=== PATIENT | female | born 1980 | race Caucasian/White ===

== ENCOUNTER 2016-06-20 12:41 | Emergency (ER) | payer BC, OTHER ==
[~2016-06-20] VITALS: Ht 157.5 cm; Wt 81.2 kg
[~2016-06-20 12:41] MED LIST: BCPILLS PO; CITA20TA9 PO; HYDR-5688 PO; IMT100 PO; MAGN250T3 PO
[2016-06-20 13:05] VITALS: TEMP 36.8; Ht 157.5 cm; Wt 81.2 kg
[2016-06-20] MEDS ORDERED: SODIUM CHLORIDE 0.9% 1000ML 1,000 ML IV STA (14:59)
[2016-06-20] MEDS ORDERED: DiphenhydrAMINE HCL 50 MG/ML VIAL IV STA (14:59)
[2016-06-20] MEDS ORDERED: PROCHLORPERAZINE 5 MG/ML 2 ML VIAL IV STA (14:59)
[2016-06-20] MEDS ORDERED: KETOROLAC TROMETHAMINE 30 MG/ML VIAL IV STA (14:59)
[2016-06-20] MEDS ORDERED: TOPI50TA16 PO (15:00)
[2016-06-20] MEDS ORDERED: FEXO1TAB58 PO (15:00)
[2016-06-20] MEDS ORDERED: LORAZEPAM 2 MG/ML 1 ML VIAL IV STA (16:12)
[2016-06-20 16:57] VITALS: BP 121/76; PULSE 86; O2SAT 100
--- NOTE | 2016-06-20 18:13 | EMERGENCY ROOM VISIT NOTE ---
History Report prepared by Lena: Ada Pierre Under the Supervision of: Dr. Isaias Linton M.D. First contact with patient: 14:50 Chief Complaint: HEADACHE Stated Complaint: SEVERE MIGRAINE - 7+ DAYS History of Present Illness The patient is a 35 year old female who presents to the Emergency Room with complaints of a persistent headache for the past seven days. She currently rates her discomfort as a 6/10 in severity. The patient stats that her headache is localized behind her right eye and describes her discomfort as a throbbing pain. She states that she has a history of migraines since she was 11 years old. The patient states that she has taken Imitrex and Topamax for her symptoms without relief. She states that this feels like a typical migraine , but just states that nothing has alleviated her headache. The patient states that light worsens her pain. She additionally associates nausea with her symptoms. The patient denies any fever, vomiting, abdominal pain, numbness or weakness. She denies any chance of . The patient denies any recent fall, trauma, or car accident. She reports normal eating and drinking. The patient notes a history of trigeminal neuralgia. Source of History: patient Onset: seven days Position: head (behind right eye) Symptom Intensity: 6/10 Quality: other (throbbing) Timing: other (persistent) Modifying Factors (Worsening): other (light) Associated Symptoms: + nausea, No abdominal pain, No fevers, No numbness, No vomiting, No weakness Review of Systems See HPI for pertinent positives & negatives. A total of 10 systems reviewed and were otherwise negative. Past Medical & Surgical Medical Problems: (1) section (2) Intrauterine (3) Kidney stones (4) Obesity (5) Polycystic ovaries Surgical Problems: (1) History of section (2) S/P laparoscopic surgery Family History FHx: cancer FHx: diabetes FHx: heart disease FHx: hypertension FHx: seizures Social History Smoking Status: Never Smoker Alcohol Use: none Drug Use: none Marital Status: Housing Status: lives with family Occupation Status: unemployed Current/Historical Medications Scheduled Control Pills ( Control Pills), 1 TAB PO DAILY Citalopram Hydrobromide (Celexa), 30 MG PO QPM Fexofenadine-Pseudoephedrine (Shayna-D 24 Hour Allergy), 1 TAB PO DAILY Magnesium (Magnesium 250 mg), 500 MG PO DAILY Topiramate (Topamax), 50 MG PO BID Scheduled PRN Sumatriptan Succinate (Imitrex), 100 MG PO DAILY PRN for Headache Allergies Coded Allergies: Ropinirole (Verified Allergy, Mild, 04/19/16) Physical Exam Vital Signs Date Time Temp Pulse Resp B/P Pulse Ox O2 Delivery O2 Flow Rate FiO2 06/20/16 16:57 86 18 121/76 100 Room Air 06/20/16 14:54 88 16 157/104 99 06/20/16 13:05 36.8 67 16 150/98 99 Room Air Physical Exam Constitutional: Vital signs reviewed. Eyes: Pupils are equal round reactive to light. Conjunctiva are noninjected. ENT: Pharynx is clear without erythema or exudate. Mucous membranes are moist. Neck supple without meningeal signs. Respiratory: Clear to auscultation bilaterally. Breath sounds are equal bilaterally. Cardiovascular: Regular rate and rhythm. No rubs or gallops. GI: Soft, nondistended and nontender. Bowel sounds are present. Musculoskeletal: No peripheral edema. Integumentary: No cyanosis. Neurological: The patient is awake and alert. Cranial nerves II-XII are intact. Motor is 5 out of 5 all extremities. Sensation is intact to light touch all extremities. Normal speech. No pronator drift. Psychiatric: Normal affect. Medical Decision & Procedures Medications Administered Medications (Trade) Dose Ordered Sig/Rober Route Start Time Stop Time Status Last Admin Dose Admin Prochlorperazine Edisylate (Compazine Inj) 10 mg NOW STAT IV 06/20/16 14:59 06/20/16 15:00 DC 06/20/16 15:38 10 MG Diphenhydramine HCl (Benadryl Inj) 50 mg NOW STAT IV 06/20/16 14:59 06/20/16 15:00 DC 06/20/16 15:42 50 MG Ketorolac Tromethamine 10 mg 10 mg NOW STAT IV 06/20/16 14:59 06/20/16 15:00 DC 06/20/16 15:41 10 MG Sodium Chloride (Nss 1000ml) 1,000 ml @ 999 mls/hr Q1H1M STAT IV 06/20/16 14:59 06/20/16 15:59 DC 06/20/16 15:42 999 MLS/HR Lorazepam (Ativan Inj) 1 mg NOW STAT IV 06/20/16 16:12 06/20/16 16:13 DC 06/20/16 16:20 1 MG ED Course 1454: The patient was evaluated in room A11B. A complete history and physical exam was performed. 1459: Ordered Sodium Chloride 1000 ml @ 999 mls/hr IV, Toradol Inj 10 mg IV, Benadryl Inj 50 mg IV, Compazine Inj 10 mg IV. 1537: I reevaluated the patient and she is just getting her medications now. 1612: I reevaluated the patient and her headache is better, but is feeling very restless and itchy from the inside. I told her that is probably from the Compazine. She states that she also gets that from Benadryl. Ordered Ativan Inj 1 mg IV. 1650: I reevaluated the patient and she is feeling much better. I discussed the treatment plan with her and she verbalized complete understanding and agreement. She is ready to go home. Medical Decision This is a 35-year-old female who presents with a migraine headache. I did perform a limited focused review of portions of the patient's old chart on the electronic medical record. The patient has had no recent pertinent visits to this hospital. I did evaluate the patient as noted above. The patient is presenting with a headache consistent with her prior migraine headaches. She denies any fever or injury. She is neurologically intact and afebrile here. IV access was established. I did treat her with IV normal saline, Toradol, Compazine and Benadryl. I did reevaluate the patient. She is feeling much better in regards to her headache but she states that she feels extremely restless. This is likely from the Compazine. She also states that Benadryl at home gives her similar symptoms. I therefore treated her with Ativan IV. On reassessment she states that she is feeling much better and ready for discharge home. She was discharged and advised follow up with her doctor. Impression Primary Impression: Acute headache Scribe Attestation The scribe's documentation has been prepared under my direct and personally reviewed by me in its entirety. I confirm that the note above accurately reflects all work, treatment, procedures, and medical decision making performed by me. Departure Information Dispostion Home / Self-Care Forms HOME CARE DOCUMENTATION FORM, IMPORTANT VISIT INFORMATION, Work Instructions Patient Instructions ED Headache Migraine, My [facility] Additional Instructions You have been examined and treated today on an emergency basis only. This is not a substitute for, or an effort to provide, complete comprehensive medical care. It is impossible to recognize and treat all injuries or illnesses in a single emergency department visit. It is therefore important that you follow up closely with your physician. Call as soon as possible for an appointment. Return for worsening symptoms or if you develop fever, numbness or weakness on one side of your body, difficulties with your speech or walking, or any other concerning symptoms.
== END 2016-06-20 16:58 | disposition home or self-care (01) ==
LOC: C.EDB 12:42 → C.EDA 16:58
DX: R51 Headache (principal); E28.2 Polycystic ovarian syndrome; Z87.442 Personal history of urinary calculi; Z79.899 Other long term (current) drug therapy; Z88.8 Allergy status to other drugs, medicaments and biological substances; Z80.9 Family history of malignant neoplasm, unspecified; Z83.3 Family history of diabetes mellitus; Z82.49 Family history of ischemic heart disease and other diseases of the circulatory system; Z82.0 Family history of epilepsy and other diseases of the nervous system

== ENCOUNTER 2016-10-06 18:13 | Emergency (ER) | payer OTHER ==
[~2016-10-06] VITALS: Ht 157.5 cm; Wt 83.0 kg
[~2016-10-06 18:13] MED LIST changes: +FEXO1TAB58 PO; -HYDR-5688 PO; +TOPI50TA16 PO
[2016-10-06 18:21] VITALS: TEMP 36.8; O2SAT 98; Ht 157.5 cm; Wt 83.0 kg
[2016-10-06 19:38] LABS: BASO % 0.4 %; BASO ABS # 0.04 K/uL (0-0.2); COMPLETE YES; EOS % 2.1 %; HEMATOCRIT 39.1 % (37-47); IG% 0.2 %; LYMPH % 35.6 %; LYMPH ABS # 3.66 K/uL (1.2-3.4); MEAN CELL VOLUME 89.1 fL (80-100); MEAN CORPUSCULAR HEMOGLOBIN 30.5 pg (25-34); MEAN CORPUSCULAR HGB CONC 34.3 g/dl (32-36); MEAN PLATELET VOLUME 9.2 fL (7.4-10.4); MONO % 6.7 %; PLATELET COUNT 417 K/uL (130-400); RED BLOOD COUNT 4.39 M/uL (4.2-5.4); WHITE BLOOD COUNT 10.27 K/uL (4.8-10.8)
[2016-10-06] MEDS ORDERED: GABA-113 PO (19:42)
[2016-10-06] MEDS ORDERED: ZOLP5TAB PO (19:42)
[2016-10-06] MEDS ORDERED: ABL15 PO (19:42)
[2016-10-06] MEDS ORDERED: CYM/30 PO (19:42)
[2016-10-06] MEDS ORDERED: PROP10TA7 PO (19:42)
[2016-10-06] MEDS ORDERED: LEVOTAB6 PO (19:42)
[2016-10-06] MEDS ORDERED: [UNRECOGNIZED DRUG - CODE] PO (19:42)
[2016-10-06] MEDS ORDERED: AMT24 PO (19:42)
[2016-10-06] MEDS ORDERED: CLON1TAB3 PO (19:42)
--- NOTE | 2016-10-06 19:45 | DIAGNOSTIC IMAGING REPORT ---
CHEST ONE VIEW PORTABLE CLINICAL HISTORY: Chest pain. COMPARISON STUDY: Chest radiograph April 19, 2016. FINDINGS: Lung volumes are normal. Lungs are clear. There is no pneumothorax or pleural effusion. Cardiac size is normal. Mediastinal contours are normal. There is no evidence of pulmonary edema. IMPRESSION: No acute cardiopulmonary findings. Electronically signed by: Yaniv Brandt M.D. 10/06/2016 7:44 PM Dictated Date/Time: 10/06/2016 7:42 PM
[2016-10-06 20:03] LABS: ALT/SGPT 31 U/L (12-78); AST/SGOT 18 U/L (15-37); BLOOD UREA NITROGEN 16 mg/dl (7-18); BUN/CREATININE RATIO 14.2 (10-20); CALCIUM 8.9 mg/dl (8.5-10.1); CARBON DIOXIDE 26 mmol/L (21-32); CHLORIDE 111 mmol/L (98-107); GLUCOSE 92 mg/dl (70-99); SODIUM 143 mmol/L (136-145)
[2016-10-06 20:08] LABS: ALB/GLOB RATIO 0.9 (0.9-2); ALKALINE PHOSPHATASE 62 U/L (45-117)
[2016-10-06] MEDS ORDERED: KETOROLAC TROMETHAMINE 30 MG/ML VIAL IV. STA (21:44)
[2016-10-06] MEDS ORDERED: KETOROLAC TROMETHAMINE 30 MG/ML VIAL ONE (21:44)
[2016-10-06] MEDS ORDERED: NURSING VERBAL MED ORDER ONE (21:45)
--- NOTE | 2016-10-06 21:45 | EMERGENCY ROOM VISIT NOTE ---
History Report prepared by Lena: Courtney Milligan Under the Supervision of: Dr. Yeimy Gomez D.O. First contact with patient: 18:22 Chief Complaint: CHEST PAIN Stated Complaint: CHEST PAIN, SOB History of Present Illness The patient is a 35 year old female who presents to the Emergency Room with complaints of improved centralized chest pain that started 1.5 hours ago, around 1730. She has never experienced this type of pain in the past. The patient states that she was packing boxes for her upcoming move and then stopped and made a salad. While she was making the salad, she developed the chest pain along with trouble getting enough air when taking a deep breath. The pain progressively got worse, so she contacted her neighbor, who is a former ED nurse. Her neighbor then came over to evaluate her and recommended coming into the ED for further evaluation. The pain radiated into the right side of her chest while she was talking to her neighbor. Currently, the pain has improved but it is still there. The patient is also experiencing pain in her right arm, but states that it is not radiating from her chest. She states that the arm pain is worse whenever she lifts it. The patient denies dizziness, recent colds , cough, nausea, and lower extremity edema. She is unsure of if she has experienced any changes in her bowel movements because she is on medication to keep her from being constipated so she normally experiences diarrhea and constipation intermittently. The patient states that she is moving to a new house is somewhat stressful but she states that she is excited to move. She adds that she has exercise-induced asthma, but states that she has not been exercising much recently. The patient believes that her biological father had a history of heart disease, but she only met him once so she is unsure of the details. The patient adds that she recently started a new medication for bipolar disorder 1 week ago. The patient denies any recent travel. She states that she has a history of GERD during , but this pain does not feel like that and she has not eaten anything to cause her to experience GERD. Source of History: patient Onset: 1.5 hours ago, around 1730 Position: chest (centralized) Quality: other (centralized chest pain) Timing: other (improved) Associated Symptoms: + SOB (trouble getting enough air when taking a deep breath), No cough, No nausea Note: right arm pain, no dizziness, no recent colds, no lower extremity edema Review of Systems See HPI for pertinent positives & negatives. A total of 10 systems reviewed and were otherwise negative. Past Medical & Surgical Medical Problems: (1) section (2) Intrauterine (3) Kidney stones (4) Obesity (5) Polycystic ovaries Surgical Problems: (1) History of section (2) S/P laparoscopic surgery Family History FHx: cancer FHx: diabetes FHx: heart disease FHx: hypertension FHx: seizures Social History Smoking Status: Never Smoker Alcohol Use: none Drug Use: none Marital Status: Housing Status: lives with family Occupation Status: unemployed Current/Historical Medications Scheduled Aripiprazole (Abilify), 15 MG PO QPM Clonazepam (Klonopin), 1 MG PO HS Duloxetine HCl (Cymbalta), 30 MG PO Q2D Fexofenadine-Pseudoephedrine (Shayna-D 24 Hour Allergy), 1 TAB PO DAILY Gabapentin (Neurontin), 300 MG PO HS Levonorgestrel-Ethinyl Estradi (Seasonique), 1 TAB PO DAILY Lubiprostone (Amitiza), 24 MCG PO QPM Magnesium (Magnesium 250 mg), 500 MG PO DAILY Topiramate (Topamax), 50 MG PO BID Scheduled PRN Caffeine (Stay Awake), 200 MG PO DAILY PRN for Headache Propranolol (Inderal), 10 MG PO DAILY PRN for PRN Sumatriptan Succinate (Imitrex), 100 MG PO DAILY PRN for Headache Zolpidem Tartrate (Ambien), 5 MG PO HS PRN for Sleep Allergies Coded Allergies: Ropinirole (Verified Allergy, Mild, 10/06/16) Physical Exam Vital Signs Date Time Temp Pulse Resp B/P Pulse Ox O2 Delivery O2 Flow Rate FiO2 10/06/16 22:35 67 18 144/81 99 Room Air 10/06/16 21:41 67 20 117/87 98 Room Air 10/06/16 20:06 66 17 144/96 100 Room Air 10/06/16 19:30 76 10/06/16 18:21 98 Room Air 10/06/16 18:21 98 Room Air 10/06/16 18:21 36.8 69 20 142/85 98 Room Air Physical Exam GENERAL: alert, well appearing, well nourished, no distress, non-toxic EYE EXAM: normal conjunctiva, PERRL and EOM's grossly intact OROPHARYNX: no exudate, no erythema, lips, buccal mucosa, and tongue normal and mucous membranes are moist NECK: supple, no nuchal rigidity, no adenopathy, non-tender CHEST: Reproducible chest tenderness on right sternal border and into the right shoulder, increased pain with movement of right upper extremity. LUNGS: Clear to auscultation. Normal chest wall mechanics HEART: no murmurs, S1 normal and S2 normal ABDOMEN: abdomen soft, non-tender, normo-active bowel sounds, no masses, no rebound or guarding. BACK: Back is symmetrical on inspection and there is no deformity, no midline tenderness, no CVA tenderness. SKIN: no rashes and no bruising UPPER EXTREMITIES: upper extremities are grossly normal. LOWER EXTREMITIES: No pitting edema. NEURO EXAM: Normal sensorium, cranial nerves II-XII grossly intact, normal speech, no gross weakness of arms, no gross weakness of legs. Medical Decision & Procedures ER Provider Diagnostic Interpretation: Radiology results have been interpreted by the radiologist and reviewed by me. CHEST ONE VIEW PORTABLE FINDINGS: Lung volumes are normal. Lungs are clear. There is no pneumothorax or pleural effusion. Cardiac size is normal. Mediastinal contours are normal. There is no evidence of pulmonary edema. IMPRESSION: No acute cardiopulmonary findings. Electronically signed by: Yaniv Brandt M.D. 10/06/2016 7:44 PM Dictated Date/Time: 10/06/2016 7:42 PM Laboratory Results 10/06/16 19:30 Red Blood Count 4.39, Mean Corpuscular Volume 89.1, Mean Corpuscular Hemoglobin 30.5, Mean Corpuscular Hemoglobin Concent 34.3, Mean Platelet Volume 9.2, Neutrophils (%) (Auto) 55.0, Lymphocytes (%) (Auto) 35.6, Monocytes (%) (Auto) 6.7, Eosinophils (%) (Auto) 2.1, Basophils (%) (Auto) 0.4, Neutrophils # (Auto) 5.64, Lymphocytes # (Auto) 3.66, Monocytes # (Auto) 0.69, Eosinophils # (Auto) 0.22, Basophils # (Auto) 0.04 10/06/16 19:30 Test 10/06/16 19:30 10/06/16 21:54 White Blood Count 10.27 K/uL (4.8-10.8) Red Blood Count 4.39 M/uL (4.2-5.4) Hemoglobin 13.4 g/dL (12.0-16.0) Hematocrit 39.1 % (37-47) Mean Corpuscular Volume 89.1 fL (80-100) Mean Corpuscular Hemoglobin 30.5 pg (25-34) Mean Corpuscular Hemoglobin Concent 34.3 g/dl (32-36) Platelet Count 417 K/uL (130-400) Mean Platelet Volume 9.2 fL (7.4-10.4) Neutrophils (%) (Auto) 55.0 % Lymphocytes (%) (Auto) 35.6 % Monocytes (%) (Auto) 6.7 % Eosinophils (%) (Auto) 2.1 % Basophils (%) (Auto) 0.4 % Neutrophils # (Auto) 5.64 K/uL (1.4-6.5) Lymphocytes # (Auto) 3.66 K/uL (1.2-3.4) Monocytes # (Auto) 0.69 K/uL (0.11-0.59) Eosinophils # (Auto) 0.22 K/uL (0-0.5) Basophils # (Auto) 0.04 K/uL (0-0.2) RDW Standard Deviation 41.9 fL (36.4-46.3) RDW Coefficient of Variation 12.9 % (11.5-14.5) Immature Granulocyte % (Auto) 0.2 % Immature Granulocyte # (Auto) 0.02 K/uL (0.00-0.02) D-Dimer 310 ug/L FEU (0-500) Anion Gap 6.0 mmol/L (3-11) Est Creatinine Clear Calc Drug Dose 69.9 ml/min Estimated GFR () 74.3 Estimated GFR (Non- 64.1 BUN/Creatinine Ratio 14.2 (10-20) Calcium Level 8.9 mg/dl (8.5-10.1) Total Bilirubin 0.2 mg/dl (0.2-1) Aspartate Amino Transf (AST/SGOT) 18 U/L (15-37) Alanine Aminotransferase (ALT/SGPT) 31 U/L (12-78) Alkaline Phosphatase 62 U/L (45-117) Troponin I < 0.015 ng/ml (0-0.045) Total Protein 7.6 gm/dl (6.4-8.2) Albumin 3.6 gm/dl (3.4-5.0) Globulin 4.0 gm/dl (2.5-4.0) Albumin/Globulin Ratio 0.9 (0.9-2) Lipase 165 U/L (73-393) Bedside Troponin I 0.000 ng/ml (0-0.045) Laboratory results per my review. Medications Administered Medications (Trade) Dose Ordered Sig/Rober Route Start Time Stop Time Status Last Admin Dose Admin Miscellaneous Information (Nursing Verbal Med Order) 1 ea ONE ONCE N/A 10/06/16 21:45 10/06/16 21:46 DC 10/06/16 21:45 1 EA Ketorolac Tromethamine (Toradol Inj) 30 mg ONE STAT IV. 10/06/16 21:44 10/06/16 21:45 DC 10/06/16 21:47 30 MG ECG Indication: chest pain Rate (beats per minute): 74 Rhythm: sinus rhythm Findings: no acute ischemic change, no ectopy, other (normal axis, normal intervals) ED Course 1847: The patient was evaluated in room C6. A complete history and physical exam was performed. 2051: I reassessed the patient. She feels well and states that she just has a sore shoulder right now. 2218: Pt states no further pain. Feeling improved. Discussed f/u with PCP, sx to watch/return for, she verbalized understanding and was agreeable with plan. Medical Decision Differential diagnoses includes but is not limited to acute coronary syndrome, myocardial infarction, pericarditis, pulmonary embolus, aortic dissection, pneumonia, pneumothorax, musculoskeletal, shingles, esophageal. Heart score 0 She well-appearing here, low risk chest pain rule out performed with 2 sets of cardiac enzymes 3 hours apart. Both of these were negative, dimer negative. Pain reproducible on exam, and improved following administration of Toradol. Chest x-ray unremarkable and reassuring. Doubt ACS, dissection, PE, tamponade, effusion, perforation, occult GI bleed. Vital signs stable, doubt hypertensive emergency/urgency. No recent URI symptoms to suggest pericarditis and myocarditis. Discussed with patient possible etiology, need for close follow up with family doctor, symptoms to watch and return for, she verbalized understanding was agreeable with plan. Impression Primary Impression: Chest pain Scribe Attestation The scribe's documentation has been prepared under my direction and personally reviewed by me in its entirety. I confirm that the note above accurately reflects all work, treatment, procedures, and medical decision making performed by me. Departure Information Dispostion Home / Self-Care Referrals Giovanni Hernandes M.D. (PCP) Patient Instructions My [facility] Additional Instructions Please follow up with her family doctor as a precaution. Please continue to monitor for any recurrence of pain. If you develop recurrent or worsening pain , trouble breathing, dizziness, vomiting, fevers, or any other new concerns, please return the emergency room. Problem Qualifiers Primary Impression: Chest pain Chest pain type: unspecified Qualified Codes: R07.9 - Chest pain, unspecified
[2016-10-06 22:35] VITALS: BP 144/81; PULSE 67; O2SAT 99
== END 2016-10-06 22:45 | disposition home or self-care (01) ==
LOC: EDBD 18:13 → C.EDC 18:14
DX: R07.9 Chest pain, unspecified (principal); R06.02 Shortness of breath; M79.601 Pain in right arm; F31.9 Bipolar disorder, unspecified; J45.909 Unspecified asthma, uncomplicated; E28.2 Polycystic ovarian syndrome; Z79.899 Other long term (current) drug therapy; Z87.442 Personal history of urinary calculi; Z82.0 Family history of epilepsy and other diseases of the nervous system; Z82.49 Family history of ischemic heart disease and other diseases of the circulatory system; Z83.3 Family history of diabetes mellitus